=== PATIENT | female | born 1985 | race Caucasian/White ===

== ENCOUNTER 2017-11-16 18:53 | Emergency (ER) | payer SELFPAY ==
[2017-11-16 18:55] VITALS: BP 143/94; PULSE 81; RESP 18; TEMP 99.1; O2SAT 100
--- NOTE | 2017-11-16 20:55 | RADRPT ---
EXAM DATE/TIME: 11/16/2017 20:46 [place] COMPARISON: No previous studies available for comparison. INDICATIONS : Cephalgia. RADIATION DOSE: 34.02 CTDIvol (mGy) MEDICAL HISTORY : None SURGICAL HISTORY : None. ENCOUNTER: Initial ACUITY: 1 day PAIN SCALE: 5/10 LOCATION: cranial TECHNIQUE: Multiple contiguous axial images were obtained of the head. Using automated exposure control and adj ustment of the mA and/or kV according to patient size, radiation dose was kept as low as reasonably a chievable to obtain optimal diagnostic quality images. DICOM format image data is available electro nically for review and comparison. FINDINGS: CEREBRUM: The ventricles are normal for age. No evidence of midline shift, mass lesion, hemorrhage or acute in farction. No extra-axial fluid collections are seen. POSTERIOR FOSSA: The cerebellum and brainstem are intact. The 4th ventricle is midline. The cerebellopontine angle i s unremarkable. EXTRACRANIAL: The visualized portion of the orbits is intact. SKULL: The calvaria is intact. No evidence of skull fracture. CONCLUSION: No acute disease. Herman Orr MD on November 16, 2017 at 20:51 Board Certified Radiologist. This report was verified electronically.
[2017-11-16] MEDS ORDERED: BUTA1CAP PO (21:11)
--- NOTE | 2017-11-16 21:12 | PD ---
HPI Chief Complaint: Pain: Acute or Chronic Time Seen by Provider: 20:02 Travel History International Travel<30 days: No Contact w/Intl Traveler<30days: No Traveled to known affect area: No History of Present Illness HPI This is a 32-year-old female here for evaluation of intermittent headaches ongoing for "several years". Patient is [place]-speaking, hospital provided translation services were used to interview patient. She reports she has had intermittent headaches for the last several years. Over the last several months their frequency and intensity have increased. She also reports right upper eyelid twitching occasionally with headaches. She denies visual changes, fever or chills, neck pain, paresthesia or weakness of extremities. She describes the headaches as sharp in nature and change location with each episode. She has had a negative CT scan several years ago. [facility] her here for CT scan. She is not currently on any migraine medications. She reports symptom improvement with Tylenol and ibuprofen but the headaches return. [facility] Past Medical History Narrative Medical Migraine headaches ?: Not Social History Alcohol Use: No Tobacco Use: No Substance Use: No Allergies-Medications (Allergen,Severity, Reaction): Coded Allergies: No Known Allergies (Unverified , 11/16/17) Review of Systems Except as stated in HPI: all other systems reviewed are Neg General / Constitutional: No: Fever Eyes: No: Visual changes HENT: No: Headaches Cardiovascular: No: Chest Pain or Discomfort Respiratory: No: Shortness of Breath Gastrointestinal: No: Abdominal Pain Genitourinary: No: Dysuria Physical Exam Narrative GENERAL: Alert and well-appearing 32-year-old female SKIN: Warm and dry. No rash HEAD: Atraumatic. Normocephalic. EYES: Pupils equal and round. EOMs intact. ENT: No nasal bleeding or discharge. Mucous membranes pink and moist. NECK: Trachea midline. No JVD. No meningismus CARDIOVASCULAR: Regular rate and rhythm. RESPIRATORY: No accessory muscle use. Clear to auscultation. Breath sounds equal bilaterally. GASTROINTESTINAL: Abdomen soft, non-tender, nondistended. Hepatic and splenic margins not palpable. MUSCULOSKELETAL: Extremities without clubbing, cyanosis, or edema. No obvious deformities. NEUROLOGICAL: Awake and alert. No obvious cranial nerve deficits. Motor grossly within normal limits. Five out of 5 muscle strength in the arms and legs. Normal speech. PSYCHIATRIC: Appropriate mood and affect; insight and judgment normal. Data Data Last Documented VS Vital Signs Date Time Temp Pulse Resp B/P (MAP) Pulse Ox O2 Delivery O2 Flow Rate FiO2 11/16/17 18:55 99.1 81 18 143/94 (110) [address] Brain W/O Iv Contrast(Rout) (11/16/17 ) MDM Medical Decision Making Medical Screen Exam Complete: Yes Emergency Medical Condition: Yes Differential Diagnosis Migraine headache, tension headache, cluster headache Narrative Course This is a well-appearing 32-year-old female here for evaluation of intermittent headaches ongoing for several years. She is concerned about their increase in frequency over the last several months. She has a normal neurologic exam. It was explained at length to patient that she would need to follow up on an outpatient basis with neurology for migraine management. She was given a printout of her CT scan report. She was given the name and number to the on- call neurologist. She will be prescribed Fioricet as needed for migraines. He was offered pain medication in the ED and she declined. She reports headache resolved. She is stable and ready for discharge. She agrees to this plan. Diagnosis Primary Impression: Migraine Qualified Codes: G43.909 - Migraine, unspecified, not intractable, without status migrainosus Referrals: Emmanuel Rubio MD Neurologist Additional Instructions: Medication as needed for migraine. Make an appointment for follow-up with neurology Scripts Welgekonkl-Gfzrydlwdwmte-[id number] (Fioricet) 50-300-40 Mg Cap 1-2 CAP PO Q6H Y for HEADACHE, #12 CAP 0 Refills Prov: Sushma Gambino 11/16/17 Disposition: 01 DISCHARGE HOME Condition: Stable Sushma Gambino Nov 16, 2017 21:12
== END 2017-11-16 21:27 | disposition home or self-care (01) ==
LOC: NEPK 18:53
DX: G43.909 Migraine, unspecified, not intractable, without status migrainosus (principal)
CPT/HCPCS: 70450; 99284